=== PATIENT | female | born 1970 | race Caucasian/White ===

== ENCOUNTER 2016-08-14 21:57 | Emergency (ER) | payer OTHER ==
[~2016-08-14] VITALS: Ht 165.1 cm; Wt 90.9 kg
[~2016-08-14 21:57] MED LIST: B COMPLEX1 TA2 PO; COENZYME Q PO; COENZYME Q-10200 M1 PO; CORGARD20 MG PO; HCTZ 25MG25 MG PO; LISINOPRIL20 MG PO; LOTENSIN20 MG PO; MECLIZINE25 MG PO; MILK OF MA400 MG/51 PO; PERCOCET 325 MG1 TA2 PO; PREDNISONE10 MG; PREDNISONE20 MG PO; PRENATAL1 TA7 PO; TRICOR145 MG PO; VITAMIN D1000 IU PO; VITAMIN D32000 I1 PO
[2016-08-14 22:04] VITALS: BP 169/115; PULSE 82; TEMP 98.8
[2016-08-14] MEDS ORDERED: PRINIVIL20 MG PO (22:04)
[2016-08-14] MEDS ORDERED: PREDNISONE20 MG PO (22:28)
== END 2016-08-14 22:55 | disposition home or self-care (01) ==
LOC: COL.ER 21:57
DX: S16.1XXA Strain of muscle, fascia and tendon at neck level, initial encounter (principal); M62.838 Other muscle spasm; X50.1XXA Overexertion from prolonged static or awkward postures, initial encounter; I10 Essential (primary) hypertension
CPT/HCPCS: J1885; J2930